=== PATIENT | male | born 1990 | race Hispanic/Latino ===

== ENCOUNTER 2019-08-12 19:59 | Emergency (ER) | payer SELFPAY ==
[2019-08-12 20:02] VITALS: BP 182/69; PULSE 64; RESP 14; TEMP 36.6; O2SAT 99; BMI 35.2
[2019-08-12 22:35] VITALS: BP 117/61; PULSE 54; RESP 16; O2SAT 97
--- NOTE | 2019-08-12 22:57 | ED_ITS ---
HPI - General Adult General Chief complaint: Shortness of Breath/Dyspnea Stated complaint: difficulty breathing, high blood pressure Time Seen by Provider: 08/12/19 22:15 Source: patient Mode of arrival: Ambulatory Limitations: no limitations History of Present Illness HPI narrative: 28-year-old gentleman with no previous medical issues noted complains of 6 weeks of increased epigastric abdominal pain worse when eating spicy foods and worse in the evenings. He notes that he will have episodes with epigastric pain feels like his stomach is bloated which then causes increased anxiety which causes palpitations and hyperventilation all of which is incredibly distressing and uncomfortable. He recently saw physician in [place] who prescribed omeprazole for presumed reflux/gastric ulcer and losartan for his hypertension. He took the medications as prescribed for approximately a month and felt significantly better. He is now down to as needed use of the omeprazole only a notes symptoms are returning. As gastric symptoms are increasing his panic and anxiety symptoms are also increasing Related Data Allergies Allergy/AdvReac Type Severity Reaction Status Date / Time No Known Drug Allergies Allergy Verified 08/12/19 20:02 Review of Systems Review of Systems Narrative: Denies ? fever ? cough ? cold ? chills ? chest pain ? dyspnea ? orthopnea ? wheezing ? change to bowel or bladder habits ? nausea vomiting ? skin changes ? rashes Patient History Medical History Panic attack as reaction to stress (Acute) Stress (Acute) Social History Smoking Status: Unknown if ever smoked Smoking Status: Unknown if ever smoked alcohol intake frequency: holidays/special occasions only Substance Use Type: does not use Exam Narrative Exam Narrative: General: Healthy appearing, in no acute distress. Able to give a complete and coherent history. Well-nourished well-developed HEENT: Moist mucous membranes, normal sclera with reactive pupils, Neck: No JVD, supple Respiratory: Lungs are clear to auscultation, no wheezing no rales no rhonchi. Full and symmetrical air movement Cardiac: Regular rate and rhythm no murmurs no bruits Abdomen: Soft mild epigastric tenderness without rebound or guarding good bowel tones, no flank pain Skin: Warm and dry, no rashes Neurologic: Grossly neurologically intact with no obvious asymmetries or abnormalities Extremities: No trauma, well perfused Psych: Cooperative, appropriate insight and affect Initial Vital Signs Initial Vital Signs: Vital Signs Temperature 97.9 F 08/12/19 20:02 Pulse Rate 64 08/12/19 20:02 Respiratory Rate 14 08/12/19 20:02 Blood Pressure 182/69 H 08/12/19 20:02 Pulse Oximetry 99 08/12/19 20:02 Course Vital Signs Vital signs: Vital Signs - 8 hr 08/12/19 20:02 08/12/19 22:35 08/12/19 23:00 Temperature 97.9 F Pulse Rate 64 54 L 51 L Respiratory Rate 14 16 Blood Pressure 182/69 H Blood Pressure [Left Arm] 117/61 117/65 Pulse Oximetry 99 97 98 Discharge Plan Departure Patient Disposition: Home Clinical Impression: Panic attack as reaction to stress, Stress Gastric ulcer Qualifiers: Gastric ulcer chronicity: acute Gastric ulcer complication status: without hemorrhage or perforation Qualified Code(s): K25.3 - Acute gastric ulcer without hemorrhage or perforation Discharge Date/Time: 08/12/19 23:58 Instructions: Anxiety and Panic Attacks (Alternative Therapy), DI for Gastric Ulcer Activity Restrictions/Additional Instructions: Thank you for coming in The doctor that use on [place] gave you very good advice Please continue to use 50 mg of losartan every day for blood pressure Please take 40 mg (2 pills) every single day of the omeprazole for 6 weeks - whether you are having symptoms are not. Allow your body time to actually heal. Please do a bit more research on panic attacks. The symptoms are terrifying and very real, but recognizing what they are and what is causing them can help you control the severity as well as the frequency of the attacks you are currently having. I did do an ultrasound in the emergency department today and I did not see any obvious gallstones as an alternative explanation for your pain I hope you feel better
[2019-08-12 23:00] VITALS: BP 117/65; PULSE 51; O2SAT 98
== END 2019-08-12 23:58 | disposition home or self-care (01) ==
PROVIDERS: Emergency Provider Emergency Medicine
DX: F41.0 Panic disorder [episodic paroxysmal anxiety] (principal); F43.9 Reaction to severe stress, unspecified; K25.3 Acute gastric ulcer without hemorrhage or perforation; I10 Essential (primary) hypertension
CPT/HCPCS: 99281; 99282

== ENCOUNTER → 2024-12-28 13:47 | Outpatient (CLI) | payer BC, SELFPAY ==
[2024-12-28 14:16] LABS: Appearance Urine UA CLEAR; Bilirubin Urine UA NEGATIVE (NEGATIVE); Color Urine UA YELLOW; Glucose Urine UA NEGATIVE (Negative); Ketones Urine UA NEGATIVE (NEGATIVE); Leukocyte Esterase Urine UA NEGATIVE (NEGATIVE); Nitrite Urine UA NEGATIVE (Negative); Occult Blood Urine UA NEGATIVE (Negative); Protein Urine UA NEGATIVE (Negative); Specific Gravity Urine UA 1.015 (1.000-1.035); Urobilinogen Urine UA 1.0 E.U./dL (0.2); pH Urine UA 6.5 (4.5-8.0)
[2024-12-28 14:30] LABS: Culture Indicated Urine Cult Not Indicated
[2024-12-28 14:57] LABS: Add Manual Diff / Slide Review NO; Hematocrit 41.9 % (41-53); Hemoglobin 14.8 g/dL (13.5-17.5); Lymphocytes Absolute Auto 2300 /uL (1100-4500); Mean Corpuscular HGB Conc 35.3 % (30-36); Mean Corpuscular Hemoglobin 30.1 PG (26-34); Mean Corpuscular Volume 85.3 fL (80-100); Platelet Count 207 X10^3/uL (150-400)
[2024-12-28 15:15] LABS: Hemoglobin A1C% w Est Avg Glu 5.3 % (4.0-6.0)
[2024-12-28 15:20] LABS: Alanine Aminotransferase 51 IU/L (<50); Albumin 4.9 g/dL (3.5-5.0); Albumin Globulin Ratio 1.6 (1.0-2.8); Alkaline Phosphatase 48 U/L (38-126); Blood Urea Nitrogen 18 mg/dL (9-20); Calcium 9.7 mg/dL (8.4-10.2); Carbon Dioxide 26 mmol/L (22-32); Chloride 104 mmol/L (98-107); Cholesterol 194 mg/dL (140-199); Estimated Glomerular Filt Rate > 60 mL/min (>60); Globulin 3.0 g/dL (1.7-4.1); Glucose 93 mg/dL (70-99); HDL Cholesterol 31 mg/dL (40-60); HEMOLYSIS < 15 (0-50); Lipase 65 U/L (23-300); Potassium 4.1 mmol/L (3.4-5.1); Sodium 139 mmol/L (137-145); Total Protein 7.9 g/dL (6.3-8.2); Triglycerides 234 mg/dL (35-150)
== END ==
PROVIDERS: Family Provider Family Medicine; PCP Family Medicine; Referring Provider Family Medicine; Visit Provider Family Medicine
DX: I10 Essential (primary) hypertension (principal); K29.70 Gastritis, unspecified, without bleeding; E78.5 Hyperlipidemia, unspecified; R30.0 Dysuria
CPT/HCPCS: 36415; 80053; 80061; 81001; 83036; 83690; 85025